=== PATIENT | male | born 1995 | race Asian ===

== ENCOUNTER 2019-01-09 06:09 | Day surgery (SDC) | payer OTHER ==
[~2019-01-09] VITALS: Ht 182.9 cm; Wt 68.0 kg
[2019-01-09 06:45] VITALS: BP 117/66
[2019-01-09 09:19] VITALS: BP 109/53
== END 2019-01-09 10:10 | disposition home or self-care (01) ==
LOC: DS 06:09 → GI 12:30
DX: K63.89 Other specified diseases of intestine (principal); K64.8 Other hemorrhoids
CPT/HCPCS: 45378; J1200; J1610; J2250; J2310; J3010; J3490